=== PATIENT | female | born 1985 | race Caucasian/White ===

== ENCOUNTER 2016-09-01 14:33 | Emergency (ER) | payer OTHER ==
[~2016-09-01] VITALS: Ht 152.4 cm; Wt 70.0 kg
[~2016-09-01 14:33] MED LIST: SYNT88TA PO
[2016-09-01 14:36] VITALS: BP 122/80; PULSE 87; RESP 15; TEMP 97.9; O2SAT 97
[2016-09-01] MEDS ORDERED: SYNT88TA PO (15:13)
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
== END 2016-09-01 16:21 | disposition left against medical advice (07) ==
LOC: NEPB 14:33
DX: R21 Rash and other nonspecific skin eruption (principal); M54.2 Cervicalgia
CPT/HCPCS: 99281